=== PATIENT | female | born 1985 | race African-American/Black ===

== ENCOUNTER 2025-04-07 11:29 | Emergency (ER) | payer MEDICAID ==
[~2025-04-07] VITALS: Ht 165.1 cm; Wt 100.0 kg
[2025-04-07 12:04] VITALS: O2SAT 99
[2025-04-07 12:37] LABS: BASOPHILS % 1.0 % (0.0-2.0); EOSINOPHILS % 2.4 % (0.0-5.0); HEMATOCRIT. 37.4 % (36.0-48.0); HEMOGLOBIN. 12.1 g/dL (12.0-16.0); LYMPHOCYTES % 34.0 % (20.0-50.0); MEAN PLATELET VOLUME 8.8 fl (7.4-10.4); MONOCYTES % 5.9 % (2.0-8.0); NEUTROPHILS % 56.7 % (40.0-76.0); PLATELET 213 x1000/uL (130-400); RED BLOOD CELL COUNT 4.27 mill/uL (4.2-5.4); RED CELL DISTRIBUTION WIDTH 13.6 % (11.6-14.6)
[2025-04-07 13:04] LABS: CLARITY URINE CLEAR (CLEAR); COLOR URINE YELLOW (YELLOW); GLUCOSE URINE NEGATIVE (NEGATIVE); KETONES URINE NEGATIVE (NEGATIVE); LEUKOCYTE ESTERASE URINE 1+ (NEGATIVE); NITRITE URINE NEGATIVE (NEGATIVE); OCCULT BLOOD URINE NEGATIVE (NEGATIVE); PH URINE 6.5 (4.5-8.0); PROTEIN URINE NEGATIVE (NEGATIVE); SPECIFIC GRAVITY URINE 1.023 (1.005-1.030); UROBILINOGEN URINE 0.2 E.U./dL (0.2-1.0)
[2025-04-07 13:15] LABS: CREATININE 1.1 mg/dL (0.6-1.0); UREA NITROGEN BLOOD 16 mg/dL (9-23)
[2025-04-07 13:17] LABS: ASPARTATE AMINOTRANSFERASE 16 IU/L (<34); BILIRUBIN DIRECT < 0.1 mg/dL (<=3.0); BILIRUBIN TOTAL 0.2 mg/dL (0.1-1.0); PROTEIN TOTAL 6.2 g/dL (6.0-8.3)
[2025-04-07 13:25] LABS: SQUAMOUS EPITHELIAL CELL URINE 3+ /lpf (RARE/1+); WBC URINE 15-25 /hpf (0-2)
[2025-04-07 13:26] LABS: BACTERIA URINE 1+; YEAST URINE NONE SEEN
[2025-04-07 14:26] LABS: HCG SCREEN NEGATIVE
[2025-04-07] MEDS: ONDANSETRON HCL 4MG/2ML INJ IV ONE (14:36)
[2025-04-07] MEDS: SODIUM CHLORIDE 0.9% 1,000 ML IV ONE (14:36)
[2025-04-07] MEDS: MORPHINE SULFATE 4 MG/ML INJ (FOR IV/IM USE) IV ONE (14:36)
[2025-04-07] MEDS ORDERED: IBUP-1455 MT (16:35)
[2025-04-07] MEDS ORDERED: CEFP200T13 MT (16:35)
[2025-04-07 16:45] VITALS: BP 142/79; PULSE 80; RESP 19; TEMP 36.7; O2SAT 100
[2025-04-07] MEDS ORDERED: IOHEXOL-300 100 ML BOTTLE ONE (23:10)
== END 2025-04-07 17:00 | disposition home or self-care (01) ==
LOC: ER 13:02
DX: N12 Tubulo-interstitial nephritis, not specified as acute or chronic (principal); R03.0 Elevated blood-pressure reading, without diagnosis of hypertension; J45.909 Unspecified asthma, uncomplicated
CPT/HCPCS: 99285; 74177; 96374; 96361; 96375; 80076; 80048; 81003; 84703; 83690; 85025; 87086; 36415; Q9967; J7030